=== PATIENT | male | born 1990 | race American Indian/Alaskan Native ===

== ENCOUNTER 2020-03-02 20:27 | Emergency (ER) | payer SELFPAY ==
--- NOTE | 2020-03-02 20:46 | Emergency Department Report ---
History of Present Illness - General Chief Complaint: Overdose Stated Complaint: POSS OD Time Seen by Provider: 03/02/20 20:34 Source: EMS Mode of arrival: Stretcher Limitations: No Limitations - History of Present Illness Initial Comments: 29-year-old male presents to ED via EMS for possible heroin overdose. EMS responded to a call at a nearby motel. Patient is staying there with his and small children. Patient was unresponsive on arrival. Narcan was given which improved his mental status. Patient is currently awake, somewhat confused. Th inks the year is 2019. When I asked patient if he had used any drugs tonight, patient reports using weed. Patient then states "I put all kinds of stuff in my weed." MD Complaint: accidental overdose -: This evening How Overdose Was Discovered: family/friend present Treatments Prior to Arrival: narcan - Related Data Allergies Allergy/AdvReac Type Severity Reaction Status Date / Time Unable to Assess Allergy Unverified 03/02/20 20:45 ED Review of Systems ROS: Stated complaint: POSS OD Other details as noted in HPI Respiratory: denies: shortness of breath Cardiovascular: denies: chest pain Gastrointestinal: denies: abdominal pain ED Past Medical Hx - Past Medical History Previous Medical History?: Yes Hx Diabetes: Yes - Social History Smoking Status: Current Every Day Smoker Substance Use Type: Alcohol ED Physical Exam - General Limitations: No Limitations General appearance: lethargic - Head Head exam: Present: atraumatic, normocephalic - Eye Eye exam: Present: normal appearance, PERRL, EOMI - ENT ENT exam: Present: mucous membranes moist - Neck Neck exam: Present: normal inspection - Respiratory Respiratory exam: Present: normal lung sounds bilaterally. Absent: respiratory distress - Cardiovascular Cardiovascular Exam: Present: normal rhythm, tachycardia - GI/Abdominal GI/Abdominal exam: Present: soft. Absent: distended, tenderness - Extremities Exam Extremities exam: Present: normal inspection - Neurological Exam Neurological exam: Present: alert. Absent: oriented X3 (oriented x 2) - Psychiatric Psychiatric exam: Present: normal affect, normal mood - Skin Skin exam: Present: warm, dry, intact, normal color ED Course Vital Signs 03/02/20 03/02/20 03/02/20 20:29 20:34 20:46 Temperature 98.3 F Pulse Rate 68 67 68 Respiratory 16 20 13 Rate Blood Pressure 107/61 O2 Sat by Pulse 107 H 99 Oximetry 03/02/20 03/02/20 03/02/20 21:06 21:30 22:16 Temperature Pulse Rate 57 L 61 Respiratory 16 22 17 Rate Blood Pressure 107/61 97/58 O2 Sat by Pulse 99 99 Oximetry ED Medical Decision Making - Lab Data Result diagrams: 03/02/20 20:50 03/02/20 20:50 - Medical Decision Making [employer] downtime occurred during patient's ED visit. Therefore no vitals and computer since 10 PM. Patient was observed in the ED for several hours until he was alert , awake, and appropriate. Drug screen positive for opiates and marijuana. Patient discharged home. Return precautions given. - Differential Diagnosis Intoxication, alcohol intoxication Critical care attestation.: If time is entered above; I have spent that time in minutes in the direct care of this critically ill patient, excluding procedure time. ED Disposition Clinical Impression: Substance abuse Accidental drug overdose Qualifiers: Encounter type: initial encounter Qualified Code(s): T50.901A - Poisoning by unspecified drugs, medicaments and biological substances, accidental (unintentional), initial encounter Disposition: DC-01 TO HOME OR SELFCARE Is pt being admited?: No Condition: Stable Instructions: Polysubstance Abuse (ED) Referrals: SHELLY GUNN MD [Primary Care Provider] - 3-5 Days
[2020-03-02] MEDS ORDERED: SODIUM CHLORIDE 0.9% 1000 ML 1,000 ML IV ONE (20:52)
[2020-03-02 21:12] LABS: Basophils # (Auto) 0.1 K/mm3 (0.0-0.1); Basophils % (Auto) 0.5 % (0.0-1.8); Eosinophils # (Auto) 0.1 K/mm3 (0.0-0.4); Eosinophils % (Auto) 0.8 % (0.0-4.3); Hematocrit 36.2 % (35.5-45.6); Hemoglobin 12.5 gm/dl (11.8-15.2); Lymphocytes # (Auto) 2.6 K/mm3 (1.2-5.4); Mean Corpuscular HGB Conc 35 % (32-34); Mean Corpuscular Volume 89 fl (84-94); Monocytes % (Auto) 8.8 % (0.0-7.3); Platelet Count 286 K/mm3 (140-440); Red Blood Count 4.07 M/mm3 (3.65-5.03); Red Cell Distribution Width 13.3 % (13.2-15.2)
[2020-03-02 21:29] LABS: BUN/Creatinine Ratio 8; Blood Urea Nitrogen 7 mg/dL (9-20); Calcium 9.4 mg/dL (8.4-10.2); Hemolysis Index 102
[2020-03-02 22:27] VITALS: BP 97/58
== END 2020-03-02 22:26 | disposition home or self-care (01) ==
LOC: ED 20:27
DX: T40.1X1A Poisoning by heroin, accidental (unintentional), initial encounter (principal); F19.10 Other psychoactive substance abuse, uncomplicated; E11.9 Type 2 diabetes mellitus without complications; F17.200 Nicotine dependence, unspecified, uncomplicated; Y92.89 Other specified places as the place of occurrence of the external cause
CPT/HCPCS: 36415; 80048; 85025; 96360; 96361; 99283; J7030; 80320; G0480

== ENCOUNTER 2020-03-03 21:06 | Emergency (ER) | payer SELFPAY ==
--- NOTE | 2020-03-03 21:16 | Emergency Department Report ---
HPI - General Time Seen by Provider: 03/03/20 21:12 - HPI HPI: This is a 29-year-old male who presents to the emergency department via EMS with a suspected drug overdose. Initially the patient was unresponsive and was breathing at about 3-4 times per minute when EMS arrived. They gave him 2 mg of Narcan with improvement. At first the EMS call says that he was still lethargic but he is awake, alert, oriented by the time he presents to the emergency department. Patient admits to taking 2 ecstasy pills and then he says "the cocaine came out, at least what we thought was cocaine." The patient admits to a history of diabetes but he is not on any medications for it and does not follow with a primary care physician. Patient also admits to a history of IV drug use. Currently, at this time, the patient has no complaints and says that he feels "great." This patient was here last night for an accidental drug overdose as well. ED Past Medical Hx - Past Medical History Hx Diabetes: Yes - Social History Smoking Status: Current Every Day Smoker Substance Use Type: Alcohol ED Review of Systems ROS: Stated complaint: OD Other details as noted in HPI Comment: All other systems reviewed and negative Constitutional: denies: chills, fever Eyes: denies: eye pain, vision change ENT: denies: ear pain, throat pain Respiratory: denies: cough, shortness of breath Cardiovascular: denies: chest pain, palpitations Gastrointestinal: denies: abdominal pain, vomiting Genitourinary: denies: dysuria, discharge Musculoskeletal: denies: back pain, arthralgia Skin: denies: rash, lesions Neurological: other (Unresponsive episode). denies: headache, weakness Physical Exam - Physical Exam Physical Exam: GENERAL: The patient is well-developed well-nourished. HENT: Normocephalic. Atraumatic. Patient has moist mucous membranes. EYES: Extraocular motions are intact. No nystagmus. NECK: Supple. Trachea is midline. CHEST/LUNGS: Clear to auscultation. There is no respiratory distress noted. HEART/CARDIOVASCULAR: Regular. There is no tachycardia. There is no murmur. ABDOMEN: Abdomen is soft, nontender. Patient has normal bowel sounds. SKIN: Skin is warm and dry. NEURO: The patient is awake, alert, and oriented. The patient is cooperative. The patient has no focal neurologic deficits. Normal speech. Cranial nerves II through XII grossly intact. No facial asymmetry. MUSCULOSKELETAL: There is no tenderness or deformity. There is no limitation range of motion. ED Course - Reevaluation(s) Reevaluation #1: 03/03/20 21:52 Vital Signs 03/03/20 21:08 Temperature 98.7 F Pulse Rate 85 Respiratory 14 Rate Blood Pressure 128/82 [Left] O2 Sat by Pulse 99 Oximetry ED Medical Decision Making - Medical Decision Making This patient presented initially for a drug overdose. By the time the patient arrived to the emergency department he is awake, alert, oriented. He does not have any focal, motor or sensory deficits and cranial nerves are intact. The patient is not allowing for any further evaluation to be done. He would not allow for us to do an EKG, labs, continued monitoring. The patient knows that the year is 2019. He knows that the current president is Bhaskar. He is not exhibiting any signs of acute psychosis. He is otherwise calm and appropriate. Therefore, despite the fact that he overdosed on drugs, he has a normal decision-making capacity at this time. The patient understands the risks of signing out AGAINST MEDICAL ADVICE at this time. I explained to him about how Narcan works and that if he were to try and use any heroin or other opiates that it would block the effects of those drugs and that there is the concern that he would use even higher doses of the drugs. If he were to do this and then the Narcan wears off, the patient could once again become unresponsive and have severe respiratory depression. Patient acknowledges that he understands all this and still has decided to sign out AGAINST MEDICAL ADVICE. Critical Care Time: No Critical care attestation.: If time is entered above; I have spent that time in minutes in the direct care of this critically ill patient, excluding procedure time. ED Disposition Clinical Impression: Substance abuse Accidental drug overdose Qualifiers: Encounter type: initial encounter Qualified Code(s): T50.901A - Poisoning by unspecified drugs, medicaments and biological substances, accidental (unintentional), initial encounter Disposition: DC-07 LEFT AGAINST MED ADVICE Is pt being admited?: No Time of Disposition: 21:38
[2020-03-03 21:23] VITALS: BP 128/82
[2020-03-05 08:58] LABS: Amphetamine Screen,Urine PRESUMPTIVE NEGATIVE; Benzodiazepines Screen,Urine PRESUMPTIVE NEGATIVE; Cannabinoid Screen,Urine PRESUMPTIVE POSITIVE; Cocaine Screen,Urine PRESUMPTIVE NEGATIVE; Methadone Screen,Urine PRESUMPTIVE NEGATIVE; Opiate Screen,Urine PRESUMPTIVE POSITIVE
== END 2020-03-03 21:30 | disposition left against medical advice (07) ==
LOC: ED 21:06
DX: T50.901A Poisoning by unspecified drugs, medicaments and biological substances, accidental (unintentional), initial encounter (principal); F17.200 Nicotine dependence, unspecified, uncomplicated; E11.9 Type 2 diabetes mellitus without complications; Y92.89 Other specified places as the place of occurrence of the external cause
CPT/HCPCS: 80307; 93005